=== PATIENT | male | born 1985 | race Caucasian/White ===

== ENCOUNTER 2016-05-16 19:43 | Emergency (ER) | payer SELFPAY ==
[~2016-05-16] VITALS: Ht 195.6 cm; Wt 104.3 kg
[2016-05-16 20:54] LABS: BASOPHILS # (AUTO) 0.1 /CMM (0.0-0.2); BASOPHILS % (AUTO) 0.9 % (0.0-2.0); EOSINOPHILS # (AUTO) 0.5 /CMM (0.0-0.7); EOSINOPHILS % (AUTO) 5.2 % (0.0-6.0); HEMATOCRIT 47 % (39-51); HEMOGLOBIN 16.2 g/dL (13.5-17.5); LYMPHOCYTES # (AUTO) 3.6 /CMM (0.8-4.8); LYMPHOCYTES % (AUTO) 36.6 % (20.0-44.0); MEAN CORPUSCULAR HEMOGLOBIN 31 PG (26.0-33.0); MEAN CORPUSCULAR HGB CONC 34 g/dl (31.0-36.0); MEAN CORPUSCULAR VOLUME 88 fL (80-96); MONOCYTES # (AUTO) 0.7 /CMM (0.1-1.30); MONOCYTES % (AUTO) 7.4 % (2.0-12.0); NEUTROPHILS # (AUTO) 4.9 /CMM (1.8-8.9); NEUTROPHILS % (AUTO) 49.9 % (43.0-81.0); PLATELET COUNT (AUTO) 330 /CMM (150-450); RDW COEFFICIENT OF VARIATION 12.7 (11.5-15.0); RED BLOOD CELL COUNT(AUTO) 5.32 MIL/uL (4.5-6.0); WHITE BLOOD COUNT (AUTO) 9.8 K/uL (4.3-11.0)
--- NOTE | 2016-05-16 20:54 | NUR ---
PT BIB SELF C/O EPIGASTRIC CP AND TIGHTNESS X1 DAY WITH SOB. RESP EVEN UNLABORED. PT HAS HX OF ANXIETY AND APPEARS MILDLY ANXIOUS. SKIN WARM NONDIAPHORETIC. AMBULATORY WITH STEADY GAIT. IN ER BED 12 ON MONITOR.
[2016-05-16] MEDS ORDERED: LORAZEPAM INJ 2 MG/ML VIAL ONE (20:55)
[2016-05-16] MEDS ORDERED: FAMOTIDINE/PF INJ 20 MG/2 ML VIAL IV ONE ×2 (20:56→21:00)
[2016-05-16] MEDS ORDERED: KETOROLAC TROMETHAMINE 15 MG/ML VIAL ONE (20:56)
[2016-05-16] MEDS ORDERED: IV SET PRIMARY 1 EA INFUS.SET MC ONE (20:56)
[2016-05-16] MEDS ORDERED: IV NS 0.9% 1,000 ML ONE (20:56)
[2016-05-16] MEDS ORDERED: IV NS 0.9% 1,000 ML BAG IV ONE (21:00)
[2016-05-16] MEDS ORDERED: KETOROLAC TROMETHAMINE INJ 30 MG/ML VIAL IV ONE (21:00)
[2016-05-16] MEDS ORDERED: LORAZEPAM INJ 2 MG/ML VIAL IV ONE (21:00)
[2016-05-16 21:03] LABS: CARBON DIOXIDE 27 mmol/L (21-32); CHLORIDE 104 mmol/L (98-107); CREATININE 0.9 mg/dL (0.6-1.3); GFR 98 mL/min (>60); GLUCOSE 84 mg/dL (74-106); POTASSIUM 3.8 mmol/L (3.5-5.1); SODIUM SERUM 138 mmol/L (136-145); UREA NITROGEN, BLOOD 11 mg/dL (7-18)
[2016-05-16 21:09] LABS: ALANINE AMINOTRANSFERASE 71 U/L (12-78); ALBUMIN 4.2 g/dL (3.4-5.0); ALKALINE PHOSPHATASE 72 U/L (46-116); ASPARTATE AMINOTRANSFERASE 40 U/L (15-37); BILIRUBIN,DIRECT 0.1 mg/dL (0.0-0.2); BILIRUBIN,TOTAL 0.4 mg/dL (0.2-1.0); LIPASE 60 U/L (73-393); TOTAL PROTEIN, SERUM 7.4 g/dL (6.4-8.2)
[2016-05-16 21:11] LABS: TROPONIN I < 0.017 ng/mL (0.00-0.056)
--- NOTE | 2016-05-16 22:32 | NUR ---
Patient discharged to home in stable condition. Written and verbal after care instructions given. Patient verbalizes understanding of instruction. IV removed. Catheter intact and site benign. Pressure and 4x4 applied to site. No bleeding noted. AMBULATORY WITH STEADY GAIT. EXTENSIVE TEACHING ABOUT ANXIETY MANAGEMENT AND REDUCTION COMPLETED.
[2016-05-16 22:34] VITALS: BP 133/76
== END 2016-05-16 22:35 | disposition home or self-care (01) ==
LOC: ER 19:46
DX: E86.0 Dehydration (principal); R07.89 Other chest pain; R20.2 Paresthesia of skin; I10 Essential (primary) hypertension; F41.9 Anxiety disorder, unspecified; F17.200 Nicotine dependence, unspecified, uncomplicated
CPT/HCPCS: 36415; 71010; 80048; 80076; 83690; 84484; 85025; 93005; 96361; 96374 ×2; 96375; 99285; A4606; J1885; J2060; J3490; J7030; Z7610

== ENCOUNTER 2018-08-23 16:19 | Emergency (ER) | payer MEDICAID ==
--- NOTE | 2018-08-23 16:38 | NUR ---
CALLED IN WAITING ROOM, NO REPLY
--- NOTE | 2018-08-23 17:15 | NUR ---
CALLED IN WAITING ROOM, NO RESPONSE
--- NOTE | 2018-08-23 17:27 | NUR ---
PT LEFT W/OUT BEING SEEN
== END 2018-08-23 17:28 | disposition left against medical advice (07) ==
LOC: ER 16:24
DX: Z53.21 Procedure and treatment not carried out due to patient leaving prior to being seen by health care provider (principal); R51 Headache

== ENCOUNTER 2024-11-03 02:36 | Emergency (ER) | payer MEDICAID ==
[~2024-11-03] VITALS: Ht 193 cm; Wt 99.8 kg
[2024-11-03] MEDS ORDERED: KETOROLAC TROMETHAMINE INJ 30 MG/ML VIAL ONE (04:15)
[2024-11-03] MEDS: KETOROLAC TROMETHAMINE INJ 30 MG/ML VIAL IM ONE (04:20)
[2024-11-03 05:00] LABS: PLATELET COUNT (AUTO) 249 K/uL (150-450); RED BLOOD CELL COUNT(AUTO) 4.95 MIL/uL (4.5-6.0); RED CELL DISTRIBUTION WIDTH 13.4 % (11.5-15.0); WHITE BLOOD COUNT (AUTO) 13.2 K/uL (4.3-11.0)
[2024-11-03 05:20] LABS: INR 1.44 (0.91-1.10)
[2024-11-03 05:42] LABS: ASPARTATE AMINOTRANSFERASE 67.0 U/L (15-37); CALCIUM, SERUM 9.1 mg/dL (8.5-10.1); CREATININE 0.9 mg/dL (0.6-1.3); SODIUM SERUM 142.0 mmol/L (136-145); TOTAL PROTEIN, SERUM 6.6 g/dL (6.4-8.2); UREA NITROGEN, BLOOD 7.0 mg/dL (7-18)
[2024-11-03 06:59] VITALS: BP 119/71; TEMP 98.7; O2SAT 92
== END 2024-11-03 07:00 | disposition home or self-care (01) ==
LOC: ER 02:41
DX: K80.20 Calculus of gallbladder without cholecystitis without obstruction (principal); I10 Essential (primary) hypertension; F17.200 Nicotine dependence, unspecified, uncomplicated
CPT/HCPCS: 99285; 76705; 71045; 96372; 93005; 85025; 80048; 83690; 80076; 36415; 84484; 85730; 86850; J1885